=== PATIENT | male | born 1950 | race Caucasian/White ===

== ENCOUNTER 2020-09-17 13:35 | Emergency (ER) | payer MEDICARE, OTHER ==
[~2020-09-17] VITALS: Ht 185.4 cm; Wt 131.6 kg
[2020-09-17] MEDS ORDERED: DILT1CAP2 PO (13:46)
[2020-09-17] MEDS ORDERED: HYDR12.55 PO (13:46)
[2020-09-17] MEDS ORDERED: ELIQ5TAB PO (13:46)
[2020-09-17] MEDS ORDERED: FLEC1TAB PO (13:46)
[2020-09-17] MEDS ORDERED: BENA10TA PO (13:46)
[2020-09-17] MEDS ORDERED: ASPI81CH33 PO (13:46)
[2020-09-17] MEDS ORDERED: FLOM0.4C39 PO (13:46)
[2020-09-17] MEDS ORDERED: METF-839 PO (13:47)
[2020-09-17] MEDS ORDERED: SILVER NITRATE APPLICATOR TOP ONE (16:20)
[2020-09-17] MEDS ORDERED: OXYMETAZOLINE 0.05% NASAL SPRAY (AFRIN) ONE (16:20)
[2020-09-17] MEDS ORDERED: PHENYLEPHRINE 0.5% NASAL SPRAY 15 ML ONE (16:40)
[2020-09-17] MEDS ORDERED: HM S0.65 NARES (16:53)
[2020-09-17 17:10] VITALS: BP 132/72
== END 2020-09-17 17:12 | disposition home or self-care (01) ==
LOC: M ED 13:35
DX: R04.0 Epistaxis (principal); E11.9 Type 2 diabetes mellitus without complications; I10 Essential (primary) hypertension; I48.91 Unspecified atrial fibrillation; Z79.899 Other long term (current) drug therapy; Z79.82 Long term (current) use of aspirin; Z79.01 Long term (current) use of anticoagulants